=== PATIENT | female | born 1970 | race Caucasian/White ===

== ENCOUNTER → 2023-10-05 11:14 | Outpatient (CLI) | payer OTHER, SELFPAY ==
[2023-10-05 12:29] LABS: Add Manual Diff / Slide Review NO; Basophils Absolute Auto 0 /uL (0-100); Basophils Percent Auto 0.6 % (0-2); Eosinophils Absolute Auto 100 /uL (0-450); Eosinophils Percent Auto 1.2 % (2-4); Hematocrit 39.8 % (36-46); Hemoglobin 13.8 g/dL (12.0-16.0); Lymphocytes Absolute Auto 3400 /uL (1100-4500); Lymphocytes Percent Auto 53.8 % (25-40); Mean Corpuscular HGB Conc 34.6 % (30-36); Mean Corpuscular Hemoglobin 32.8 PG (26-34); Mean Corpuscular Volume 94.7 fL (80-100); Monocytes Absolute Auto 600 /uL (0-900); Monocytes Percent Auto 9.3 % (3-14); Neutrophils Absolute Auto 2200 /uL (1500-7000); Neutrophils Percent Auto 35.1 % (50-75); Platelet Count 231 X10^3/uL (150-400); White Blood Cell Count 6.4 X10^3/uL (4.5-11.0)
[2023-10-05 12:43] LABS: Alanine Aminotransferase 19 IU/L (<35); Albumin 4.7 g/dL (3.5-5.0); Albumin Globulin Ratio 1.7 (1.0-2.8); Alkaline Phosphatase 79 U/L (38-126); Aspartate Aminotransferase 26 IU/L (14-36); BUN Creatinine Ratio 15.7 (6-22); Bilirubin Total 0.5 mg/dL (0.2-1.3); Blood Urea Nitrogen 13 mg/dL (7-17); Calcium 9.9 mg/dL (8.4-10.2); Carbon Dioxide 27 mmol/L (22-32); Chloride 106 mmol/L (98-107); Cholesterol 321 mg/dL (140-199); Estimated Glomerular Filt Rate > 60 mL/min (>60); Globulin 2.8 g/dL (1.7-4.1); Glucose 104 mg/dL (70-100); HDL Cholesterol 77 mg/dL (40-60); HEMOLYSIS < 15 (0-50); LDL Cholesterol Calculated 215 mg/dL (<100); Potassium 4.8 mmol/L (3.4-5.1); Sodium 141 mmol/L (137-145); Total Protein 7.5 g/dL (6.3-8.2); Triglycerides 143 mg/dL (35-150)
[2023-10-05 17:32] LABS: Hep C Virus Ab w/Reflex Quant NEGATIVE s/c (NEGATIVE)
== END ==
LOC: LAB 11:16
PROVIDERS: PCP Physician Assistant; Referring Provider Physician Assistant; Visit Provider Physician Assistant
DX: Z01.812 Encounter for preprocedural laboratory examination (principal); Z13.6 Encounter for screening for cardiovascular disorders; Z11.59 Encounter for screening for other viral diseases
CPT/HCPCS: 36415; 80053; 80061; 85025; 86803

== ENCOUNTER 2023-10-08 11:54 | Emergency (ER) | payer BC, SELFPAY ==
[2023-10-08 11:58] VITALS: BP 144/62; PULSE 94; RESP 18; TEMP 37.2; O2SAT 100; BMI 22.1
--- NOTE | 2023-10-08 13:20 | ED.SKABFB ---
HPI - Skin/Abscess/Foreign Bdy <Ryan Peng PA-C - Last Filed: 10/08/23 13:42> General Chief complaint: Skin/Abscess/Foreign Body Stated complaint: burning lump lt armpit Time Seen by Provider: 10/08/23 12:56 Source: patient Mode of arrival: Ambulatory Limitations: no limitations History of Present Illness HPI narrative: This is a 53-year-old female presents emergency department due to A reported lump to her left axillary area. This has been affecting her for 3 years but she states over the last couple of weeks that is become more inflamed and tender to the touch. She saw her primary care provider for this a couple of weeks ago who ordered an ultrasound, MR breast, and mammogram which the patient was not completed. Patient was denies any fevers, vomiting, chest pain, discharge from the area, or any other concerning signs or symptoms. Related Data Home Medications Medication Instructions Recorded Confirmed No Known Home Medications 09/22/23 09/28/23 Allergies Allergy/AdvReac Type Severity Reaction Status Date / Time No Known Drug Allergies Allergy Verified 09/28/23 12:17 Review of Systems <Ryan Peng PA-C - Last Filed: 10/08/23 13:42> Review of Systems Narrative: GENERAL: Denies chills, fatigue, malaise, fever, sweats. HEENT: Denies sinus pain, ear pain, sore throat, difficulty swallowing, dizziness. RESPIRATORY: Denies dyspnea, cough, wheezing, hemoptysis, sputum. CARDIOVASCULAR: Denies chest pain, palpitations, orthopnea, edema, GASTROINTESTINAL: Denies nausea, vomiting, abdominal pain, diarrhea, constipation, melena. : Denies dysuria, frequency, incontinence, hematuria, urinary retention. MUSCULOSKELETAL: denies weakness, joint pain, or bony pain SKIN: Reported a mass of the left breast NEUROLOGIC: Denies weakness, headache, numbness, change in speech, confusion, seizures, incoordination. PSYCHIATRIC: No concerning psychosocial issues. 12 point review of systems is negative except for those stated above Patient History <Ryan Peng PA-C - Last Filed: 10/08/23 13:42> Medical History (Updated 10/08/23 @ 13:41 by Ryan Peng PA-C) Wears glasses Rosacea Scarlatina (~1971) Meningitis spinal (~2002) Lipoma Herniated disc (~1996) Spina bifida Foot pain (~2015) Chicken pox (~1972) Hearing loss Abnormal Pap smear of cervix History of urinary incontinence Kidney stones (~1996) Puesi-Hclsqkplkx-Slilhz-Geovany syndrome Reflux esophagitis Dense breast tissue Surgical History (Updated 09/28/23 @ 18:47 by Gloria Awad PA-C) Anesthesia History of hymenectomy (~1984) History of partial hysterectomy (~1984) History of hip surgery (~1974) History of hernia repair (~1969) Family History (Updated 09/23/23 @ 22:13 by Mary Agustin) Mother Cancer Grandfather Congestive heart failure Grandmother Cancer Social History Smoking Status: Never smoker Smoking Status: Never smoker alcohol intake frequency: holidays/special occasions only Substance Use Type: does not use Exam <Ryan Peng PA-C - Last Filed: 10/08/23 13:42> Narrative Exam Narrative: GENERAL: Well-developed patient, in mild distress. HEAD: Atraumatic. Normocephalic. EYES: Pupils equal round and reactive. Extraocular motions intact. No scleral icterus. No injection or drainage. ENT: Nose without bleeding, purulent drainage. Throat without erythema, tonsillar hypertrophy or exudate. Airway patent. NECK: Trachea midline. Non tender EXTREMITIES: No edema or joint tenderness. NEURO: AOx3. SKIN: no significant masses felt to the left breast, no erythema, no induration, mild tenderness to palpation with deep palpation of the left breast. Initial Vital Signs Initial Vital Signs: Vital Signs Temperature 98.9 F 10/08/23 11:58 Pulse Rate 94 H 10/08/23 11:58 Respiratory Rate 18 10/08/23 11:58 Blood Pressure 144/62 H 10/08/23 11:58 Pulse Oximetry 100 10/08/23 11:58 Oxygen Delivery Method Room Air 10/08/23 11:58 <Autumn Mars DO - Last Filed: 10/09/23 09:02> Initial Vital Signs Initial Vital Signs: Vital Signs Temperature 98.9 F 10/08/23 11:58 Pulse Rate 94 H 10/08/23 11:58 Respiratory Rate 18 10/08/23 11:58 Blood Pressure 144/62 H 10/08/23 11:58 Pulse Oximetry 100 10/08/23 11:58 Oxygen Delivery Method Room Air 10/08/23 11:58 Course <Ryan Peng PA-C - Last Filed: 10/08/23 13:42> Vital Signs Vital signs: Vital Signs - 8 hr 10/08/23 11:58 Temperature 98.9 F Pulse Rate 94 H Respiratory Rate 18 Blood Pressure 144/62 H Pulse Oximetry 100 Oxygen Delivery Method Room Air <Autumn Mars DO - Last Filed: 10/09/23 09:02> Vital Signs Vital signs: Vital Signs - 8 hr 10/08/23 11:58 Temperature 98.9 F Pulse Rate 94 H Respiratory Rate 18 Blood Pressure 144/62 H Pulse Oximetry 100 Oxygen Delivery Method Room Air MDM - Skin/Abscess/Foreign Bdy <Ryna Peng PA-C - Last Filed: 10/08/23 13:42> MDM Narrative Medical decision making narrative: ED course: This is a 53-year-old female presents to the emergency department due to a possible mass in the left breast. Unable to palpate any significant masses by palpation and no evidence of any erythema or abscess. Patient was already seen her primary care provider for this he was ordered a breast ultrasound as well as a MR breast as well as a mammogram. Patient was vitals were all within normal limits and exam not concerning. Recommended patient follow up with the primary care providers to complete this imaging for further management. CC: Breast mass Complicating co-morbidities: none Data collected from: Previous notes Medical records reviewed: Patient was seen by her family medicine physician 2 weeks ago due to dense breast tissue. Has been affecting her for the last 3 years. Patient was seen 2 years ago for and was advised to get a mammogram which the patient was refused. An ultrasound was also ordered which the patient did not scheduled for. Patient had a hysterectomy at a young age. Ultrasound, CMP, CBC, MR, and lipid panel were ordered. Differential considered, but not limited to: dense breast tissue, breast cancer Exam documented above, pertinent findings include: no masses felt, no erythema, no concerns for abscess Lab Test results independently reviewed as above. Pertinent findings: none obtained Imaging studies independently reviewed: none obtained Scores Used: None MIPS Elements: None Consultations: None Treatments: none none Re-evaluations: none Discussion: Discussed plan with the patient was comfortable with the plan Diagnosis: breast mass Disposition: see below, along with detailed discharge instructions that have been reviewed with patient as well as indications for ED re-evaluation and additional outpatient follow up Discharge Plan Departure Patient Disposition: Home Clinical Impression: Mass of left axilla Activity Restrictions/Additional Instructions: Thank you for coming to the [facility] Emergency Department today. On exam I did not see any concerns for any kind of abscess that would not benefit from any kind of incision and drainage or antibiotics. I do recommend you have the imaging completed that your primary care provider's ordered as this would be the best way to determine what exactly this mass you are feeling is. Please return to the emergency department if you develop any Chest pain, fevers, or any other concerning signs or symptoms. I hope you feel better soon. Please follow up with your primary care provider within a week if your symptoms continue. If you do not have a primary care provider please contact the [facility] Resource line at [phone]. They will ask some questions about your medical history and help you get set up with a provider in the community. Prescriptions: No Action No Known Home Medications Referrals: Gloria Awad PA-C [Primary Care Provider] - Stand Alone Forms: Patient Portal/API ED Sign-out <Autumn Mars DO - Last Filed: 10/09/23 09:02> Cosign ED Attending Edy Attestation: I was available for consultation.
[2023-10-08 13:46] VITALS: BP 112/67; PULSE 78; RESP 16; O2SAT 97
== END 2023-10-08 13:46 | disposition home or self-care (01) ==
PROVIDERS: Emergency Provider Physician Assistant Medical; PCP Physician Assistant
DX: N63.32 Unspecified lump in axillary tail of the left breast (principal)
CPT/HCPCS: 99281

== ENCOUNTER 2023-10-17 21:57 | Emergency (ER) | payer BC, SELFPAY ==
[2023-10-17 22:16] VITALS: BP 116/56; PULSE 84; RESP 18; TEMP 36.9; O2SAT 100; BMI 21.4
--- NOTE | 2023-10-17 23:18 | ED.SKABFB ---
HPI - Skin/Abscess/Foreign Bdy General Chief complaint: Skin/Abscess/Foreign Body Stated complaint: infected iv site Time Seen by Provider: 10/17/23 22:57 Source: patient Mode of arrival: Ambulatory Limitations: no limitations History of Present Illness HPI narrative: Patient is a 53-year-old female who earlier this week underwent some procedures which required an IV in her left AC/forearm. She stated that over the past day or so she was noticed some redness and discomfort over the IV site. No fevers. She can bend her elbow but does have some discomfort because of some minor swelling in the area. Was told to come to the emergency department for further evaluation. Related Data Previous Rx's Medication Instructions Recorded cephalexin 500 mg capsule 500 mg PO QID 7 days #28 caps 10/17/23 Allergies Allergy/AdvReac Type Severity Reaction Status Date / Time No Known Drug Allergies Allergy Verified 10/14/23 11:51 Review of Systems Constitutional Constitutional: Reports system reviewed and no additional complaints, except as documented Musculoskeletal Musculoskeletal: Reports system reviewed and no additional complaints, except as documented Integumentary/Breasts Skin/Breast: Reports system reviewed and no additional complaints, except as documented Patient History Medical History Pap smear of vagina following gynecologic surgery Perimenopausal symptom Wears glasses Rosacea Scarlatina (~1971) Meningitis spinal (~2002) Lipoma Herniated disc (~1996) Spina bifida Foot pain (~2015) Chicken pox (~1972) Hearing loss Abnormal Pap smear of cervix History of urinary incontinence Kidney stones (~1996) Cjldo-Uucxxgiurv-Sorlju-Geovany syndrome Reflux esophagitis Dense breast tissue Surgical History (Updated 09/28/23 @ 18:47 by Gloria Awad PA-C) Anesthesia History of hymenectomy (~1984) History of partial hysterectomy (~1984) History of hip surgery (~1974) History of hernia repair (~1969) Family History (Updated 09/23/23 @ 22:13 by Mary Agustin) Mother Cancer Grandfather Congestive heart failure Grandmother Cancer Social History Smoking Status: Never smoker Smoking Status: Never smoker alcohol intake frequency: holidays/special occasions only Substance Use Type: does not use Exam Initial Vital Signs Initial Vital Signs: Vital Signs Temperature 98.5 F 10/17/23 22:16 Pulse Rate 84 10/17/23 22:16 Respiratory Rate 18 10/17/23 22:16 Blood Pressure 116/56 L 10/17/23 22:16 Pulse Oximetry 100 10/17/23 22:16 Oxygen Delivery Method Room Air 10/17/23 22:16 Const General: cooperative and comfortable HENMT Head: normal to inspection Skin Other: Redness and warmth around the obvious IV site in the left AC. No fluctuance noted. Neuro General: patient alert, patient awake and moves all extremities Course Orders Ordered: Discontinued Medications Cephalexin HCl (Cephalexin 250 Mg Capsule) 500 mg PO NOW ONE Stop: 10/17/23 23:22 Last Admin: 10/17/23 23:42 Dose: 500 mg Documented By: MARY Vital Signs Vital signs: Vital Signs - 8 hr 10/17/23 22:16 Temperature 98.5 F Pulse Rate 84 Respiratory Rate 18 Blood Pressure 116/56 L Pulse Oximetry 100 Oxygen Delivery Method Room Air MDM - Skin/Abscess/Foreign Bdy MDM Narrative Medical decision making narrative: Patient does have physical exam that is consistent with cellulitis most likely related to the insertion site of the IV. There was no fluctuance in the area. Low suspicion for abscess. She is nontoxic appearing. There is a very slight feeling of a palpable cord located in the area. Plan will be to treat the patient with anti-inflammatories and also antibiotics. No indication for admission in the hospital today. Will discharge home with return precautions. She expressed understanding and agreement with plan. Discharge Plan Departure Patient Disposition: Home Clinical Impression: Thrombophlebitis, Cellulitis Instructions: DI for Cellulitis -- Adult Activity Restrictions/Additional Instructions: I do recommend that you continue with anti-inflammatory such as Motrin or Naprosyn. Warm compresses can be helpful. Take the antibiotics as directed. Return to the emergency department for new symptoms. Prescriptions: New cephalexin 500 mg capsule 500 mg PO QID 7 Days Qty: 28 0RF Referrals: Gloria Awad PA-C [Primary Care Provider] - Stand Alone Forms: Patient Portal/API
[2023-10-17] MEDS: cephALEXin 250 MG CAPSULE 500 MG PO (23:42)
== END 2023-10-17 23:49 | disposition home or self-care (01) ==
PROVIDERS: Emergency Provider Emergency Medicine; PCP Physician Assistant
DX: T80.1XXA Vascular complications following infusion, transfusion and therapeutic injection, initial encounter (principal); L03.114 Cellulitis of left upper limb
CPT/HCPCS: 99283

== ENCOUNTER 2023-10-18 11:08 | Emergency (ER) | payer BC, SELFPAY ==
[2023-10-18 11:22] VITALS: BP 127/62; PULSE 77; RESP 18; TEMP 36.6; O2SAT 99; BMI 21.4
--- NOTE | 2023-10-18 11:33 | DI.US.S_ITS ---
PROCEDURE: US PERIPH VENOUS UP EXTREM LT INDICATIONS: LUE phlebitis vs dvt. had iv at aC increased red/induration TECHNIQUE: Real-time imaging, as well as color and pulse Doppler interrogation, was performed of the upper extremity deep veins from the inferior neck to the antecubital fossa. COMPARISON: None. FINDINGS: The internal jugular vein, visualized portions of the subclavian vein, axillary, and brachial veins are free of intraluminal thrombus. Where physically possible, the veins are normally compressible. Color and pulse Doppler demonstrate normal intraluminal flow, with expected phasicity and pulsatility. Additional scanning of the cephalic and basilic veins of the superficial system demonstrates normal compressibility, without thrombus. There is superficial venous segmental thrombus in the cephalic vein approximately 4 inches central to the antecubital fossa. IMPRESSION: 1. No findings of upper extremity deep venous thrombosis can be seen. 2. Superficial venous segmental thrombosis in the cephalic vein approximately 4 inches central to the antecubital fossa. Dictated by: Debora Rivas M.D. on 10/18/2023 at 11:53 Approved by: Debora Rivas M.D. on 10/18/2023 at 11:57
--- NOTE | 2023-10-18 11:34 | ED_ITS ---
HPI - Extremity Problem General Chief complaint: Extremity Problem,Nontraumatic Stated complaint: Returning; L Arm Infected IV site, Swelling Time Seen by Provider: 10/18/23 11:16 Source: patient, RN notes reviewed and old records reviewed Mode of arrival: Ambulatory Limitations: no limitations History of Present Illness HPI Narrative: 53-year-old female who was admitted earlier at an outside facility had an IV in her left AC. Patient states during her hospital she noticed that it started to become irritated she states there may have been some contrast injected into the area during her stay. She has had increased discomfort and redness over the site was seen last night started on cephalexin has had 1 dose. Has full range of motion but is uncomfortable she is noted increasing redness and swelling at the site since she was here in the emergency department last night. She appreciates some mild swelling of her hand and arm in general. She states there is a little bit of mild discomfort. Denies chest pain no shortness of breath no fevers. No cold cough or congestion. No other GI or urinary symptoms. Patient states she was having a workup for possible stroke versus syncope or altered mental status. States that she was cleared. She has not on any daily medications but did receive 2 doses of Plavix while in the hospital last week. Has had prior hip dysplasia surgery remotely. No known drug allergies. No tobacco, alcohol or recreational drugs reported Related Data Previous Rx's Medication Instructions Recorded cephalexin 500 mg capsule 500 mg PO QID 7 days #28 caps 10/17/23 doxycycline hyclate 100 mg tablet 100 mg PO BID #20 tabs 10/18/23 Allergies Allergy/AdvReac Type Severity Reaction Status Date / Time No Known Drug Allergies Allergy Verified 10/18/23 11:06 Review of Systems Review of Systems ROS Unobtainable: All systems reviewed & are unremarkable except as noted in HPI and below Patient History Medical History Pap smear of vagina following gynecologic surgery Perimenopausal symptom Wears glasses Rosacea Scarlatina (~1971) Meningitis spinal (~2002) Lipoma Herniated disc (~1996) Spina bifida Foot pain (~2015) Chicken pox (~1972) Hearing loss Abnormal Pap smear of cervix History of urinary incontinence Kidney stones (~1996) Mcozm-Qezjowfsqb-Welkmq-Geovany syndrome Reflux esophagitis Dense breast tissue Surgical History Anesthesia History of hymenectomy (~1984) History of partial hysterectomy (~1984) History of hip surgery (~1974) History of hernia repair (~1969) Family History Mother Cancer Grandfather Congestive heart failure Grandmother Cancer Social History Smoking Status: Never smoker Smoking Status: Never smoker alcohol intake frequency: holidays/special occasions only Substance Use Type: does not use Exam Narrative Exam Narrative: GENERAL: Alert and oriented x three, female in mild distress HEENT: Head normocephalic, atraumatic, EOMI, pupils reactive, face symmetric, moist mucous membranes NECK: Supple, full range of motion CARDIOVASCULAR: Regular rate and rhythm without murmurs, rubs or gallops. RESPIRATORY: Breath sounds equal bilaterally, no wheezes rales or rhonchi. ABDOMEN: Soft, nontender. Normoactive bowel sounds all 4 quadrants. No guarding or rebound, rigidity, no mass EXTREMITIES: Normal range of motion, no clubbing or edema. Neurovascularly intact. Patient's left AC has erythema with some induration about 3 cm x 1 cm. No palpable cord but is over the area of the AC. Can see where patient's puncture was from her prior IV. No obvious swelling of left comparison to right. 2+ radial pulses bilaterally, normal sensation throughout normal range of motion. Areas only mildly tender to touch. Neurovascularly intact. NEUROLOGICAL: Cranial nerves II through XII grossly intact. Moving all extremities SKIN: Warm, dry, no petechiae, no rashes or lesions other than noted above. Initial Vital Signs Initial Vital Signs: Vital Signs Temperature 97.9 F 10/18/23 11:22 Pulse Rate 77 10/18/23 11:22 Respiratory Rate 18 10/18/23 11:22 Blood Pressure 127/62 10/18/23 11:22 Pulse Oximetry 99 10/18/23 11:22 Oxygen Delivery Method Room Air 10/18/23 11:22 Course Orders Ordered: ED Orders 10/18/23 11:33 US periph venous up extrem lt Stat Vital Signs Vital signs: Vital Signs - 8 hr 10/18/23 11:22 10/18/23 13:28 10/18/23 13:30 Temperature 97.9 F Pulse Rate 77 80 Pulse Rate [Left Radial] 70 Respiratory Rate 18 Blood Pressure 127/62 Pulse Oximetry 99 98 Oxygen Delivery Method Room Air 10/18/23 13:30 10/18/23 13:30 10/18/23 14:00 Temperature Pulse Rate 77 79 Pulse Rate [Left Radial] Respiratory Rate Blood Pressure 117/56 L Pulse Oximetry 99 99 Oxygen Delivery Method 10/18/23 14:00 Temperature Pulse Rate Pulse Rate [Left Radial] Respiratory Rate Blood Pressure 105/52 L Pulse Oximetry Oxygen Delivery Method MDM - Extremity (Nontraumatic) MDM Narrative Medical decision making narrative: 53-year-old female with likely phlebitis versus DVT of upper extremity at the location of an IV placed during recent hospitalization, patient does have induration and erythema around the area noticed a little bit increased swelling in her arm she has had a single dose of oral antibiotic which was cephalexin. Took her 2nd dose here in the emergency department. DVT ultrasound was obtained. DVT shows superficial thrombosis 4 cm of the cephalic vein. Does not quite meet criteria for full anticoagulation but discussed with patient can take an aspirin daily, warm compresses. Discussed antibiotic choice we will switch to something that has more MRSA coverage. Discussed with patient has stopped the cephalexin. Discussed return precautions and need for follow-up. Patient answered questions and understands the importance of follow up ultrasound to make sure resolution of clot. Discharge Plan Departure Patient Disposition: Home Clinical Impression: Superficial thrombophlebitis Instructions: DI for Superficial Thrombophlebitis Activity Restrictions/Additional Instructions: Please follow up for recheck of the superficial blood clot in your cephalic vein. If you are having persistent symptoms but improved you should have repeat imaging in the next 2 weeks to make sure this has resolved. Use warm compresses to the affected area 4 times daily. I would recommend full-dose aspirin once daily for the next 2 weeks until you follow-up. I would recommend stopping the cephalexin and taking a new antibiotic. A prescription was sent to [facility] in [place]. Please return for fevers increasing redness, swelling or pain in your upper extremity new numbness tingling or weakness inability to bend the elbow, new chest pain or shortness of breath or other new or concerning changes. Prescriptions: New doxycycline hyclate 100 mg tablet 100 mg PO BID Qty: 20 0RF No Action cephalexin 500 mg capsule 500 mg PO QID 7 Days Qty: 28 0RF Referrals: Gloria Awad PA-C [Primary Care Provider] - Stand Alone Forms: Patient Portal/API
[2023-10-18 13:28] VITALS: PULSE 80; O2SAT 98
[2023-10-18 13:30] VITALS: BP 117/56; PULSE 70; PULSE 77; O2SAT 99
[2023-10-18 14:00] VITALS: BP 105/52; PULSE 79; O2SAT 99
== END 2023-10-18 14:21 | disposition home or self-care (01) ==
PROVIDERS: Emergency Provider Emergency Medicine; PCP Physician Assistant
DX: T80.1XXA Vascular complications following infusion, transfusion and therapeutic injection, initial encounter (principal); I80.12 Phlebitis and thrombophlebitis of left femoral vein
CPT/HCPCS: 93971; 99283

== ENCOUNTER → 2023-10-22 11:50 | Outpatient (CLI) | payer BC, SELFPAY ==
--- NOTE | 2023-10-22 11:51 | DI.MG.S_ITS ---
BILATERAL DIGITAL DIAGNOSTIC MAMMOGRAM 3D/2D: 10/22/2023 CLINICAL: Axillary Mass Baseline exam. No prior exams were available for comparison. There are scattered areas of fibroglandular density in both breasts (category b / 25%-50% glandular tissue). There is an asymmetry in the left breast middle depth lateral region seen on the craniocaudal view only. This correlates as an incidental finding. No other significant masses, calcifications, or other findings are seen in either breast. Prominent lymph nodes in the axilla corresponds to the axillary symptoms. IMPRESSION: INCOMPLETE: NEEDS ADDITIONAL IMAGING EVALUATION The asymmetry in the left breast is indeterminate. An ultrasound is recommended. There is no abnormality seen in the left breast to correspond with the nipple abnormality, however, ultrasound is recommended. Prominent lymph nodes in the axilla corresponds to the axillary symptoms. Ultrasound recommended. Based on the Tyrer Cuzick model (a risk assessment model) the patient's lifetime risk is 16.9% and her 10 year risk is 5.0%. According to the ACR, ACS, and NCCN guidelines, an annual breast MRI exam along with mammogram is recommended if the patient's lifetime risk is 20% or greater. This exam was interpreted at Station ID: [id number]. NOTE: For mammograms, a report in lay terms will be sent to the patient. Approximately 15% of breast malignancies will not be visualized mammographically. In the management of a palpable breast mass, a negative mammogram must not discourage biopsy of a clinically suspicious lesion. Electronically Signed By: Brian Blood M.D. lc/:10/22/2023 15:11:43 ACR BI-RADS Category 0: Incomplete 3340F
--- NOTE | 2023-10-22 11:51 | DI.US.S_ITS ---
PROCEDURE: US EXTREMITY NONVASC LOWER LT INDICATIONS: left glute mass, enlarging and causing numbness/tingling. TECHNIQUE: Real-time scanning was performed of the left lower back with image documentation. COMPARISON: None. FINDINGS: Focus of subcutaneous echogenicity measuring 5.6 x 5.2 x 1.7 cm. No increased vascularity. IMPRESSION: Suspected lipoma at area of concern. Dictated by: Afia Vizcaino M.D. on 10/23/2023 at 13:21 Approved by: Afia Vizcaino M.D. on 10/23/2023 at 13:22
--- NOTE | 2023-10-22 11:51 | DI.US.S_ITS ---
LIMITED ULTRASOUND OF LEFT BREAST AND AXILLA: 10/22/2023 CLINICAL: Lt axilla mass / lt breast pain / warm area. Comparison is made to exam dated: 10/22/2023 mammogram - [facility]. Color flow and real-time ultrasound of the left breast 2-4 o'clock, retroareolar, and axilla regions were performed. There is a 1 cm x 0.6 cm x 0.4 cm irregular mass in the left breast at 4 o'clock middle depth 4 cm from the nipple. Prominent axillary lymph nodes are present corresponding to area of concern. These exhibit normal fatty hilar morphology. No abnormality in the retroareolar region. IMPRESSION: SUSPICIOUS OF MALIGNANCY The 1 cm x 0.6 cm x 0.4 cm irregular mass in the left breast is suspicious of malignancy. An ultrasound guided biopsy is recommended. Prominent axillary lymph nodes are present corresponding to area of concern. These exhibit normal fatty hilar morphology. No abnormality in the retroareolar region at the area of concern. Clinical evaluation recommended for these clinical findings. This exam was interpreted at Station ID: [id number]. Electronically Signed By: Brian Blood M.D. lc/:10/22/2023 15:17:45 letter sent: Biopsy Required Ultrasound BI-RADS: 4 Suspicious for malignancy
[2023-10-22 16:28] LABS: Follicle Stimulating Hormone 51.5 mIU/mL
[2023-10-22 16:44] LABS: Estradiol, Total 17.2 pg/mL
== END ==
PROVIDERS: Nurse Practitioner Adult Health; PCP Physician Assistant; Referring Provider Physician Assistant; Visit Provider Physician Assistant
DX: N63.23 Unspecified lump in the left breast, lower outer quadrant (principal); R22.32 Localized swelling, mass and lump, left upper limb; R22.2 Localized swelling, mass and lump, trunk; N95.1 Menopausal and female climacteric states
CPT/HCPCS: 36415; 76642; 76882; 77066; 82397; 82670; 83001; G0279

== ENCOUNTER → 2023-11-04 14:13 | Outpatient (CLI) | payer BC, SELFPAY ==
--- NOTE | 2023-11-04 14:30 | DI.RAD.S_ITS ---
PROCEDURE: XR DEXA AXIAL SKELETON INDICATIONS: Bone density screening COMPARISON: None. FINDINGS: Lumbar Spine (L1 excluded due to increased density): Bone mineral density 0.920 g/cm2, T score -1.4, osteopenia. Left Hip: Bone mineral density 0.825 g/cm2, T score -1, normal. Left Femoral Neck: Bone mineral density 0.688 g/cm2, T score -1.4, osteopenia. Right Hip: Bone mineral density 0.804 g/cm2, T score -1.1, osteopenia. Right Femoral Neck: Bone mineral density 0.698 g/cm2, T score -1.4, osteopenia. Fracture Risk Calculation (when applicable): 10-year fracture risk of a major osteoporotic fracture 9.9% and of a hip fracture 0.8%. (T score greater or equal to -1.0 to: NORMAL) (T score from -1.1 to -2.4: OSTEOPENIA) (T score less than or equal to -2.5: OSTEOPOROSIS) IMPRESSION: Osteopenia. Follow-up guidelines as follows: Osteoporosis: Consider a repeat DEXA and Vertebral Fracture Assessment (VFA) exam in 2 years or sooner if medically necessary, to reassess this patient's status. Osteopenia: Consider a repeat DEXA in 2-3 years to reassess this patient's status, or if there is a new clinical indication. Normal: Consider a repeat DEXA in 5 years or sooner, or if there is a new clinical indication. All treatment decisions require clinical judgment and consideration of individual patient factors, including patient preferences, comorbidities, previous drug use, risk factors not captured in the FRAX model (e.g., frailty, falls, vitamin D deficiency, increased bone turnover, interval significant decline in bone density ) and possible under- or over-estimation of fracture risk by FRAX. In addition, the NOF Guide recommends that FDA-approved medical therapies be considered in postmenopausal women and men age >= 50 years with a: * Hip or vertebral (clinical or morphometric) fracture * T-score of <=-2.5 at the spine or hip * Ten-year fracture probability by FRAX of >= 3% for hip fracture or >=20% for major osteoporotic fracture. People with diagnosed cases of osteoporosis or at high risk for fracture should have regular bone mineral density tests. For patients eligible for Medicare, routine testing is allowed once every 2 years. The testing frequency can be increased to one year for patients who have rapidly progressing disease, those who are receiving or discontinuing medical therapy to restore bone mass, or have additional risk factors. Dictated by: Timur Dunham M.D. on 11/04/2023 at 16:49 Approved by: Timur Dunham M.D. on 11/04/2023 at 16:50
== END ==
LOC: RAD 14:14
PROVIDERS: PCP Physician Assistant; Referring Provider Nurse Practitioner Adult Health; Visit Provider Nurse Practitioner Adult Health
DX: M85.89 Other specified disorders of bone density and structure, multiple sites (principal)
CPT/HCPCS: 77080

== ENCOUNTER → 2023-11-06 | Outpatient (CLI) | payer BC, SELFPAY ==
--- NOTE | 2023-11-06 | PATH_ITS ---
[facility] Accession Number: [id number] No. of containers..01 Tissue . 01 Material submitted: . breast - LEFT BREAST 4:00 4CMFN . 01 Diagnosis: LEFT BREAST 4 O'CLOCK, 4 CM FN, IMAGE-GUIDED BIOPSIES: Benign breast parenchyma with dense hyalinizing fibrosis and atrophic ducts, please see microscopic description. Negative for in situ or invasive carcinoma. MRV 11/10/2023 1526 Local . 01 Comment: As part of routine machined parts quality inspector, this case has also been reviewed by Dr. Hailee Perez, who agrees with the interpretation. . 01 Electronically signed: . Kavin Dickson MD, Pathologist NPI- [id number] . 01 Gross description: . Received in formalin with two patient identifiers and left breast 4 o'clock, 4 cm FN, are multiple yellow to julio soft tissue fragments admixed with hemorrhagic material aggregating to 2.0 x 1.2 x 0.3 cm. Inked yellow, filtered, and submitted entirely in A1. . Fixation: The specimen was removed on 11/06/2023 at 1429, time in formal in not provided; cold ischemic time cannot be calculated, and total fixation time is approximately 48 hours. ([id number]) /MRV 11/08/2023 1050 Local . 01 Microscopic: . Microscopic examination of the breast biopsies reveals dense hyalinizing stromal fibrosis and atrophic ducts. . Given the abnormal ultrasound report of an irregular mass in the left breast (suspicious for malignancy), multiple deeper levels and immunostains are performed to support the morphologic impression of benign breast tissue, with the following results: . SHONDA immunostain supports the absence of infiltrating cells within the dense hyalinizing fibrotic stroma, and p63 highlights the basal cell layer around the ducts arguing against infiltrating tumor. . These immunohistochemical results along with the morphology support the diagnosis. . Please correlate with the imaging studies to ensure that the area of interest is sampled. . . * This test was developed and its performance characteristics determined by [facility] ([facility]). It has not been cleared or approved by the U.S. Food and Drug Administration. The FDA has determined that such clearance or approval is not necessary. This test is used for clinical purposes. It should not be regarded as investigational or for research. . 01 Pathologist provided ICD-10: N63.20 . 01 CPT . 834248, K62176, G36486 Performed at: [address] [address], [place], [place] [id number] MD Nile Milton MD Phone: [phone]
--- NOTE | 2023-11-06 12:39 | DI.US.S_ITS ---
ULTRASOUND GUIDED BIOPSY LEFT BREAST WITH MARKING DEVICE INSERTED AND POST DIGITAL MAMMOGRAPHIC IMAGIN11/06/2023 CLINICAL: Left breast mass. PATIENT CONSENT: Risks (minor bleeding, infection, vasovagal reaction and repeat procedure), benefits and alternatives were explained to the patient and written informed consent was obtained. Correlation is made to exams dated: 10/22/2023 ultrasound and 10/22/2023 mammogram - [facility]. An ultrasound guided biopsy using real-time ultrasound was performed for the 1 cm x 0.6 cm x 0.4 cm irregular shaped mass located in the left breast at 4 o'clock middle depth 4 cm from the nipple. This was described on the previous ultrasound report. The skin was prepped in the usual manner. Local anesthetic was administered to the access site. A skin sheeba was made in the breast. The abnormality was approached from the lateral aspect. A 14 gauge biopsy needle was placed adjacent to the abnormality under ultrasound guidance. Once the needle was documented to be in the correct location, four cores were obtained using Bard Elevation. The patient received additional local anesthetic during the procedure. A vision clip was inserted into the biopsy cavity. A skin adhesive and a sterile dressing were applied to the access site. Post procedure digital mammographic imaging demonstrates the location device at the targeted area. The specimens were sent to the laboratory for pathological analysis. IMPRESSION: ULTRASOUND GUIDED BIOPSY BENIGN Ultrasound guided biopsy of the 1 cm x 0.6 cm x 0.4 cm mass in the left breast at 4 o'clock middle depth 4 cm from the nipple was successful with no apparent post procedure complications. Pathology indicates benign breast tissue with dense hyalinizing fibrosis and atrophic ducts (NBT). Pathology results are concordant with imaging findings. Return to annual mammogram screening schedule is recommended. Results and recommendations will be communicated to the ordering provider's office. This exam was interpreted at Station ID: [id number]. Reji Lagos M.D. [facility] [email or web address]/:11/16/2023 11:41:37
--- NOTE | 2023-11-06 12:39 | DI.MG.S_ITS ---
UNILATERAL LEFT DIGITAL DIAGNOSTIC MAMMOGRAM 3D/2D - LEFT BREAST POST-PROCEDURE IMAGING FOR MARKER PLACEMENT: 11/06/2023 CLINICAL: Post left breast ultrasound biopsy, clip placement imaging. Comparison is made to exams dated: 10/22/2023 mammogram, 11/06/2023 ultrasound biopsy, and 10/22/2023 ultrasound - [facility]. There are scattered areas of fibroglandular density (category b / 25%-50% glandular tissue). There is a marker clip in the appropriate position in the left breast at 4 o'clock middle depth at the biopsy site. IMPRESSION: POST PROCEDURE MAMMOGRAM FOR MARKER PLACEMENT There was a successful marker clip placement in the left breast middle depth. This exam was interpreted at Station ID: [id number]. Electronically Signed By: Reji Garay M.D. slc/:11/11/2023 13:54:44 ACR BI-RADS Category Post-Procedure Mammogram for Marker Placement
== END ==
LOC: US 12:39
PROVIDERS: PCP Physician Assistant; Referring Provider Physician Assistant; Visit Provider Physician Assistant
DX: N60.32 Fibrosclerosis of left breast (principal); N63.23 Unspecified lump in the left breast, lower outer quadrant
CPT/HCPCS: 19083; 77065

== ENCOUNTER 2023-11-20 09:52 | Day surgery (SDC) | payer BC, SELFPAY ==
[2023-11-20 10:08] VITALS: BP 113/62; PULSE 88; RESP 16; TEMP 36.1; O2SAT 97
[2023-11-20] MEDS: LACTATED RINGERS 1,000 ML 42 ML IV (10:45)
--- NOTE | 2023-11-20 10:50 | P.HP_ITS ---
History of Present Illness History of Present Illness Date Patient Seen: 11/20/23 Time Patient Seen: 10:56 Chief complaint: Screening Colonoscopy Narrative: H/o constipation, mother had colon polyps no family history for colon cancer. [facility] Medical History Pap smear of vagina following gynecologic surgery Perimenopausal symptom Wears glasses Rosacea [place] (~1971) Meningitis spinal (~2002) Lipoma Herniated disc (~1996) Spina bifida Foot pain (~2015) Chicken pox (~1972) Hearing loss Abnormal Pap smear of cervix History of urinary incontinence Kidney stones (~1996) Ifgxh-Pmkwngshej-Bnbtgg-Geovany syndrome Reflux esophagitis Dense breast tissue Surgical History Anesthesia History of hymenectomy (~1984) History of partial hysterectomy (~1984) History of hip surgery (~1974) History of hernia repair (~1969) Family History Mother Cancer Grandfather Congestive heart failure Grandmother Cancer Social History Smoking Status: Never smoker Meds Home Medications and Allergies Home Medications Medication Instructions Recorded Confirmed Type No Known Home Medications 11/10/23 11/10/23 History Allergies Allergy/AdvReac Type Severity Reaction Status Date / Time No Known Drug Allergies Allergy Verified 11/20/23 10:07 Review of Systems Review of Systems ROS: Yes All systems reviewed with the patient and are negative except as otherwise documented Exam Vital Signs (past 8 hours): - 11/20/23 10:08 Temperature 97 F L Pulse Rate 88 Respiratory Rate 16 Blood Pressure 113/62 Pulse Oximetry 97 Oxygen Delivery Method Room Air Oxygen Delivery Method Room Air Const General: cooperative, comfortable and No acute distress HENMT Head: normocephalic and atraumatic Eyes Periorbital: periorbital findings normal Neck Neck: trachea midline Chest Chest: normal inspection of the chest Resp Effort & Inspection: normal respiratory effort and able to speak in complete sentences Cardio Rate: regular rate Rhythm: regular rhythm GI Palpation: soft and No tender Skin General: turgor normal and No atrophy Neuro General: patient alert, patient awake and patient oriented x3 Cognition: normal cognition Psych Appearance: grossly normal Mental Status: mental status grossly normal Affect: normal affect Judgment: judgment good Assessment & Plan Assessment & Plan narrative: Constipation, colon cancer screening Colonoscopy with anesthesia Time-Based Coding :: [TOTAL MINUTES] spent with patient and on the chart (including review of chart, obtaining history, exam, reviewing outside data, placing orders, documenting exam and treatment plan, and counseling patient) on [DATE].
--- NOTE | 2023-11-20 11:18 | PM.OP.COLON ---
Operative Date/Time/Diagnoses Date of procedure: 11/20/23 Time of procedure: 11:18 Pre-op diagnosis: Colon cancer screening Post-op diagnosis: same Procedure & Clinicians Study performed: Colonoscopy with anesthesia Same procedure as scheduled: Yes Indications: History of constipation Surgeon: Manjula Rogers Procedure Notes Procedure in detail: Preop diagnosis: Colon cancer Postop diagnosis: Same Operative procedure: Colonoscopy with anesthesia Surgeon: Jennifer Rogers MD Findings: Moderate diverticulosis of the descending colon no polyps. Procedure: Patient placed in a lateral position. Rectal exam performed showing normal tone no masses. Colonoscope inserted into the rectum and advanced to ileocecal valve with minimal difficulty. There was pressure applied to navigate the ascending colon without complication. Insufflation extraction scope including retroflex in the rectum had the above findings. Impression: Normal colonoscopy with moderate diverticulosis of the descending colon Plan: Repeat colonoscopy in 10 years unless otherwise indicated by change in clinical condition Findings: divertiulosis Specimen(s): none sent Complications: none Post-procedure Recommendations: Colonoscopy in 10 years Follow up: as needed Disposition: PACU
[2023-11-20 11:23] VITALS: BP 91/42; PULSE 90; RESP 12; TEMP 36.1; O2SAT 92
[2023-11-20 11:25] VITALS: BP 89/46; PULSE 78; RESP 12; O2SAT 95
[2023-11-20 11:30] VITALS: BP 90/50; PULSE 69; RESP 13; O2SAT 94
[2023-11-20 11:35] VITALS: BP 90/52; PULSE 66; RESP 13; O2SAT 95
[2023-11-20 11:43] VITALS: BP 98/64; PULSE 75; RESP 15; TEMP 36.1; O2SAT 95
== END 2023-11-20 11:55 | disposition home or self-care (01) ==
PROVIDERS: PCP Physician Assistant; Referring Provider Surgery; Visit Provider Surgery
PROC: 0DJD8ZZ Inspection of Lower Intestinal Tract, Via Natural or Artificial Opening Endoscopic (ICD-10-PCS; CPT 45378; principal; 2023-11-20 11:00)
DX: Z12.11 Encounter for screening for malignant neoplasm of colon (principal); K57.30 Diverticulosis of large intestine without perforation or abscess without bleeding
CPT/HCPCS: 45378; J2704

== ENCOUNTER → 2024-02-04 13:11 | Outpatient (CLI) | payer BC, SELFPAY ==
[2024-02-04 14:11] LABS: Add Manual Diff / Slide Review NO; Basophils Absolute Auto 0 /uL (0-100); Basophils Percent Auto 0.6 % (0-2); Eosinophils Absolute Auto 100 /uL (0-450); Eosinophils Percent Auto 1.3 % (2-4); Hematocrit 41.7 % (36-46); Hemoglobin 13.9 g/dL (12.0-16.0); Lymphocytes Absolute Auto 3100 /uL (1100-4500); Lymphocytes Percent Auto 45.9 % (25-40); Mean Corpuscular HGB Conc 33.4 % (30-36); Mean Corpuscular Hemoglobin 32.1 PG (26-34); Mean Corpuscular Volume 96.1 fL (80-100); Monocytes Absolute Auto 600 /uL (0-900); Monocytes Percent Auto 8.7 % (3-14); Neutrophils Absolute Auto 2900 /uL (1500-7000); Neutrophils Percent Auto 43.5 % (50-75); Platelet Count 283 X10^3/uL (150-400); Red Blood Cell Count 4.35 X10^6/uL (4.0-5.2); Red Cell Distribution Width 13.1 % (11.6-14.8); White Blood Cell Count 6.7 X10^3/uL (4.5-11.0)
[2024-02-04 14:31] LABS: Cholesterol 319 mg/dL (140-199); HDL Cholesterol 92 mg/dL (40-60); LDL Cholesterol Calculated 192 mg/dL (<100); Triglycerides 177 mg/dL (35-150)
[2024-02-04 15:09] LABS: Erythrocyte Sedimentation Rate 5 MM/HR (0-20)
== END ==
LOC: LAB 13:12
PROVIDERS: PCP Physician Assistant; Referring Provider Physician Assistant; Visit Provider Physician Assistant
DX: E78.00 Pure hypercholesterolemia, unspecified (principal); R59.0 Localized enlarged lymph nodes
CPT/HCPCS: 36415; 80061; 85025; 85651

== ENCOUNTER → 2024-07-04 15:23 | Outpatient (CLI) | payer OTHER, SELFPAY ==
[2024-07-04 16:55] LABS: Add Manual Diff / Slide Review NO; Basophils Absolute Auto 0 /uL (0-100); Basophils Percent Auto 0.6 % (0-2); Eosinophils Absolute Auto 0 /uL (0-450); Eosinophils Percent Auto 0.6 % (2-4); Hematocrit 38.1 % (36-46); Lymphocytes Absolute Auto 3100 /uL (1100-4500); Lymphocytes Percent Auto 51.8 % (25-40); Mean Corpuscular HGB Conc 34.2 % (30-36); Mean Corpuscular Hemoglobin 32.4 PG (26-34); Mean Corpuscular Volume 94.9 fL (80-100); Monocytes Absolute Auto 500 /uL (0-900); Monocytes Percent Auto 8.2 % (3-14); Neutrophils Absolute Auto 2400 /uL (1500-7000); Neutrophils Percent Auto 38.8 % (50-75); Platelet Count 235 X10^3/uL (150-400); Red Blood Cell Count 4.01 X10^6/uL (4.0-5.2); Red Cell Distribution Width 13.5 % (11.6-14.8); White Blood Cell Count 6.1 X10^3/uL (4.5-11.0)
[2024-07-04 17:36] LABS: Alanine Aminotransferase 24 IU/L (<35); Albumin 4.8 g/dL (3.5-5.0); Albumin Globulin Ratio 1.8 (1.0-2.8); Alkaline Phosphatase 75 U/L (38-126); Aspartate Aminotransferase 31 IU/L (14-36); BUN Creatinine Ratio 14.1 (6-22); Bilirubin Total 0.7 mg/dL (0.2-1.3); Blood Urea Nitrogen 12 mg/dL (7-17); Calcium 9.8 mg/dL (8.4-10.2); Carbon Dioxide 29 mmol/L (22-32); Chloride 101 mmol/L (98-107); Estimated Glomerular Filt Rate > 60 mL/min (>60); Globulin 2.6 g/dL (1.7-4.1); Glucose 89 mg/dL (70-99); HDL Cholesterol 80 mg/dL (40-60); HEMOLYSIS < 15 (0-50); Sodium 138 mmol/L (137-145); Total Protein 7.4 g/dL (6.3-8.2); Triglycerides 80 mg/dL (35-150)
[2024-07-04 17:45] LABS: Cholesterol 338 mg/dL (140-199); LDL Cholesterol Calculated 242 mg/dL (<100)
[2024-07-04 18:05] LABS: TSH w/ Reflex to FT4 3.26 uIU/mL (0.47-4.68)
[2024-07-06 19:44] LABS: HIV 1 & 2 Ab/Ag 4th Gen Combo NEGATIVE (NEGATIVE)
== END ==
PROVIDERS: PCP Physician Assistant; Referring Provider Physician Assistant; Visit Provider Physician Assistant
DX: E78.5 Hyperlipidemia, unspecified (principal); R00.0 Tachycardia, unspecified; Z11.4 Encounter for screening for human immunodeficiency virus [HIV]
CPT/HCPCS: 36415; 80053; 80061; 84443; 85025; 87389